=== PATIENT | male | born 2000 | race African-American/Black ===

== ENCOUNTER 2022-07-10 20:56 | Emergency (ER) | payer OTHER ==
[2022-07-10] MEDS ORDERED: NEOMYCIN-POLYMYXIN-HC EAR SUSP 200 DROP/10 ML BOT ONE (22:20)
[2022-07-10] MEDS ORDERED: traMADol HCl 50 MG TAB ONE (22:42)
[2022-07-10] MEDS ORDERED: Acetaminophen 325 MG TAB ONE (22:43)
== END 2022-07-10 22:51 | disposition home or self-care (01) ==
LOC: NAV ERS 20:56
DX: H60.501 Unspecified acute noninfective otitis externa, right ear (principal); H66.91 Otitis media, unspecified, right ear; F17.210 Nicotine dependence, cigarettes, uncomplicated
CPT/HCPCS: 99282

== ENCOUNTER 2024-01-20 20:47 | Emergency (ER) | payer OTHER, SELFPAY ==
[2024-01-20] MEDS ORDERED: Naproxen 500 MG TAB ONE (21:07)
== END 2024-01-20 21:11 | disposition home or self-care (01) ==
LOC: NAV ERS 20:47
DX: S39.012A Strain of muscle, fascia and tendon of lower back, initial encounter (principal); Z87.891 Personal history of nicotine dependence; X50.0XXA Overexertion from strenuous movement or load, initial encounter
CPT/HCPCS: 99283

== ENCOUNTER 2024-05-20 21:15 | Emergency (ER) | payer SELFPAY ==
[2024-05-20] MEDS ORDERED: Ibuprofen 800 MG TAB ONE (21:36)
== END 2024-05-20 21:45 | disposition home or self-care (01) ==
LOC: NAV ERS 21:15
DX: B34.9 Viral infection, unspecified (principal); Z87.891 Personal history of nicotine dependence
CPT/HCPCS: 99283